=== PATIENT | female | born 1970 | race African-American/Black ===

== ENCOUNTER 2018-06-13 02:49 | Emergency (ER) | payer BC, OTHER ==
--- NOTE | 2018-06-13 05:18 | ER Document Report ---
ED General - General Mode of Arrival: Ambulatory Information source: Patient TRAVEL OUTSIDE OF THE [place] IN LAST 30 DAYS: No <OPAL GONZALEZ - Last Filed: 06/13/18 05:26> <AYDE BROWER - Last Filed: 06/13/18 06:40> - General Chief Complaint: Chest Pain > 30 Stated Complaint: CHEST AND BACK PAIN,SHORTNESS OF BREATH Time Seen by Provider: 06/13/18 04:59 Notes: Patient is an 47 year old female with HTN presents to the emergency department complaining of multiple symptoms including chest pain, shortness of breath and back pain. Patient states her chest pain is located over her sternum and radiates into her left ribs and left side of her back. She states the pain feels like it is deep inside. She also states she has had similar symptom in the past although it was not as severe. She also complains of a cough. She denies any relieving or exacerbating factors to any of her symptoms. She further denies any fevers. Patient is on chronic pain management for coccydynia following a coccyx fracture. (OPAL GONZALEZ) - Related Data Allergies/Adverse Reactions: aspirin [Aspirin] Allergy (Verified 04/04/13 21:49) hydromorphone HCl [From Dilaudid] Allergy (Verified 04/04/13 21:49) levofloxacin [From Levaquin] Allergy (Verified 04/04/13 21:49) metaproterenol sulfate [From Alupent] Allergy (Verified 04/04/13 21:49) prednisone Allergy (Verified 06/13/18 03:18) IV dye Allergy (Uncoded 06/13/18 03:18) Past Medical History - General Information source: Patient - Social History Smoking Status: Current Every Day Smoker Cigarette use (# per day): Yes Chew tobacco use (# tins/day): No Smoking Education Provided: No Family History: Reviewed & Not Pertinent Pulmonary Medical History: Reports: Hx Asthma - childhood Renal/ Medical History: Reports: Hx Kidney Stones - Immunizations Immunizations up to date: Yes Hx Diphtheria, Pertussis, Tetanus Vaccination: Yes <OPAL GONZALEZ - Last Filed: 06/13/18 05:26> Review of Systems - Review of Systems Constitutional: No symptoms reported EENT: No symptoms reported Cardiovascular: See HPI, Chest pain Respiratory: See HPI, Cough, Short of breath Gastrointestinal: No symptoms reported Genitourinary: No symptoms reported Female Genitourinary: No symptoms reported Musculoskeletal: See HPI, Back pain Skin: No symptoms reported Hematologic/Lymphatic: No symptoms reported Neurological/Psychological: No symptoms reported -: Yes All other systems reviewed and negative <OPAL GONZALEZ - Last Filed: 06/13/18 05:26> Physical Exam <OPAL GONZALEZ - Last Filed: 06/13/18 05:26> - Vital signs Vitals: Temp Pulse Resp BP Pulse Ox 98.2 F 95 16 131/72 H 100 06/13/18 03:13 06/13/18 03:13 06/13/18 03:13 06/13/18 03:13 06/13/18 03:13 - Notes Notes: GENERAL: Alert, interacts well. No acute distress. HEAD: Normocephalic, atraumatic. EYES: Pupils equal, round, and reactive to light. Extraocular movements intact. ENT: Oral mucosa moist, tongue midline. NECK: Full range of motion. Supple. Trachea midline. LUNGS: Clear to auscultation bilaterally, no wheezes, rales, or rhonchi. No respiratory distress. Left sternal border tender to palpation. HEART: 2/6 systolic murmur. ABDOMEN: Soft, non-tender. Non-distended. Bowel sounds present in all 4 quadrants. EXTREMITIES: Moves all 4 extremities spontaneously. NEUROLOGICAL: Alert and oriented x3. Normal speech. PSYCH: Normal affect, normal mood. SKIN: Warm, dry, normal turgor. No rashes or lesions noted. BACK: No tenderness to palpation. No CVA tenderness to percussion. (OPAL GONZALEZ) Course - Laboratory Result Diagrams: 06/13/18 05:15 06/13/18 05:15 <OPAL GONZALEZ - Last Filed: 06/13/18 05:26> - Laboratory Result Diagrams: 06/13/18 05:15 06/13/18 05:15 - Diagnostic Test Radiology reviewed: Image reviewed, Reports reviewed - Chest x-ray is unremarkable. - EKG Interpretation by Id EKG shows normal: Sinus rhythm, Randall, Intervals, ST-T Waves. abnormal: QRS Complexes - Inferior Q waves Rate: Normal - 81 Rhythm: NSR Voltage: Consistant with LVH P Waves: LAE When compared to previous EKG there are: Previous EKG unavailable <AYDE BROWER - Last Filed: 06/13/18 06:40> - Vital Signs Vital signs: Temp Pulse Resp BP Pulse Ox 98.2 F 95 18 118/73 100 06/13/18 03:13 06/13/18 03:13 06/13/18 05:01 06/13/18 05:00 06/13/18 05:01 - Laboratory Laboratory results interpreted by me: 06/13/18 06/13/18 05:15 05:30 Chloride 109 H Total Protein 6.1 L Urine Protein 100 H Urine Ketones TRACE H Urine Blood SMALL H Discharge <OPAL GONZALEZ - Last Filed: 06/13/18 05:26> <AYDE BROWER - Last Filed: 06/13/18 06:40> - Discharge Clinical Impression: Chest wall pain Condition: Stable Disposition: HOME, SELF-CARE Additional Instructions: Chest Wall Pain: Your chest pain has been diagnosed as coming from the chest wall. This is often caused by straining the muscles or joints in the chest during physical activity, direct trauma, coughing, or vigorous vomiting. Persons with arthritis are especially prone to this type of pain, due to inflammation of the cartilage joints near the breast bone. Occasionally, no cause can be found. Rest from strenuous physical activity. This kind of chest pain is usually made worse by movement of the chest. Depending on the symptoms, we may prescribe medicine for pain, muscle relaxation, and antiinflammatory effects. If the pain is new, and seems to be due to muscle strain, cold packs can help. Otherwise, apply gentle warmth to the painful area for 15 minutes every hour or two. You should contact the doctor immediately if things change. Further eval uation is needed if you develop a fever or cough, if the nature of the pain changes, or if you become short of breath. Your examination shows tenderness to the left anterior chest wall and ribs. There is no clear explanation for the pain you are feeling in the left back that seem to wrap around to the front. Occasionally shingles will give pain in that region before the rash developed, however the skin is usually very sensitive with early shingles. Your chest x-ray, EKG, and lab work did not show any problems, and a lab test for blood clots was negative. Continue your regular medications, but consider stopping the phentermine hydrochloride until you can be further evaluated by your primary care provider for this chest pain. Follow-up with your doctor this week for reevaluation. RETURN TO THE EMERGENCY ROOM IF ANY NEW OR WORSENING SYMPTOMS. Scribe Attestation: 06/13/18 06:40 I personally performed the services described in the documentation, reviewed and edited the documentation which was dictated to the scribe in my presence, and it accurately records my words and actions. (AYDE BROWER) Scribe Documentation - Scribe Written by Carmen:: Carmen Rodarte, 06/13/2018 05:22 acting as scribe for :: Macario <OPAL GONZALEZ - Last Filed: 06/13/18 05:26>
[2018-06-13 05:28] LABS: ABSOLUTE BASOPHILS # (AUTO) 0.1 10^3/uL (0.0-0.2); ABSOLUTE EOSINOPHILS # (AUTO) 0.2 10^3/uL (0.0-0.6); ABSOLUTE LYMPHOCYTES (AUTO) 3.7 10^3/uL (0.5-4.7); ABSOLUTE MONOCYTES (AUTO) 0.6 10^3/uL (0.1-1.4); ABSOLUTE NEUT (AUTO) 4.9 10^3/uL (1.7-8.2); BASOPHILS % (AUTO) 0.7 % (0-2); EOSINOPHILS % (AUTO) 2.2 % (0-6); HEMATOCRIT 37.1 % (36.0-47.0); HEMOGLOBIN 12.9 g/dL (12.0-15.5); LYMPHOCYTES % (AUTO) 39.1 % (13-45); MEAN CORPUSCULAR HEMOGLOBIN 32.2 pg (27.0-33.4); MEAN CORPUSCULAR HGB CONC 34.8 g/dL (32.0-36.0); MEAN CORPUSCULAR VOLUME 93 fl (80-97); MONOCYTES % (AUTO) 6.3 % (3-13); PLATELET COUNT 238 10^3/uL (150-450); RED BLOOD COUNT 4.01 10^6/uL (3.72-5.28); RED CELL DISTRIBUTION WIDTH 13.2 % (11.5-14.0); SEGMENTED NEUTROPHILS % (AUTO) 51.7 % (42-78); TOTAL CELLS COUNTED % (AUTO) 100 %; WHITE BLOOD COUNT 9.6 10^3/uL (4.0-10.5)
[2018-06-13 05:38] VITALS: BP 118/73
[2018-06-13 05:45] LABS: ALANINE AMINOTRANSFERASE 32 U/L (9-52); ALKALINE PHOSPHATASE 79 U/L (38-126); ASPARTATE AMINO TRANSFERASE 21 U/L (14-36); BILIRUBIN,DIRECT 0.1 mg/dL (0.0-0.4); BILIRUBIN,TOTAL 0.3 mg/dL (0.2-1.3); BLOOD UREA NITROGEN 11 mg/dL (7-20); CALCIUM 9.6 mg/dL (8.4-10.2); CARBON DIOXIDE 28 mmol/L (22-30); CREATINE KINASE 59 U/L (30-135); GLUCOSE 96 mg/dL (75-110); POTASSIUM 3.8 mmol/L (3.6-5.0); TOTAL PROTEIN 6.1 g/dL (6.3-8.2)
[2018-06-13 05:50] LABS: ANION GAP 5 (5-19); CHLORIDE 109 mmol/L (98-107); SODIUM 142.3 mmol/L (137-145)
[2018-06-13 05:56] LABS: CREATINE KINASE MB 0.27 ng/mL (<4.55)
[2018-06-13 05:59] LABS: TROPONIN I < 0.012 ng/mL
[2018-06-13 05:59] LABS: APPEARANCE,URINE SLIGHTLY-CLOUDY; BILIRUBIN,URINE NEGATIVE (NEGATIVE); COLOR,URINE YELLOW; GLUCOSE, URINE NEGATIVE (NEGATIVE); KETONES,URINE TRACE mg/dL (NEGATIVE); LEUKOCYTE ESTERASE,URINE NEGATIVE (NEGATIVE); NITRITE,URINE NEGATIVE (NEGATIVE); PROTEIN,URINE 100 mg/dL (NEGATIVE); URINE SPECIFIC GRAVITY 1.014; UROBILINOGEN,URINE NEGATIVE mg/dL (<2.0)
--- NOTE | 2018-06-13 06:28 | RADIOLOGY REPORT (SQ) ---
EXAM DESCRIPTION: XR CHEST 2 VIEWS COMPLETED DATE/TME: 06/13/2018 05:11 CLINICAL HISTORY: 47 years Female, Chest pain with shortness of breath COMPARISON: 09/02/2015 NUMBER OF VIEWS/TECHNIQUE: 2, Frontal, Lateral FINDINGS: Adequate lung volume, clear parenchyma, normal cardiac silhouette, and intact bony thorax. Mammary prostheses. IMPRESSION: No acute cardiopulmonary findings.
--- NOTE | 2018-06-13 18:37 | EKG REPORT ---
SEVERITY:- ABNORMAL ECG - SINUS RHYTHM FOUZIA, CONSIDER BIATRIAL ABNORMALITIES PROBABLE LEFT VENTRICULAR HYPERTROPHY CONSIDER INFERIOR INFARCT : Confirmed by: [place] Estrada 13-Jun-2018 18:36:20
== END 2018-06-13 07:06 | disposition home or self-care (01) ==
LOC: ER 02:49
DX: R07.89 Other chest pain (principal); M54.9 Dorsalgia, unspecified; R06.02 Shortness of breath; R07.81 Pleurodynia; R05 Cough; F17.210 Nicotine dependence, cigarettes, uncomplicated; I10 Essential (primary) hypertension
CPT/HCPCS: 36415; 71046; 80053; 81001; 82550; 82553; 84484; 85025; 85379; 93005; 93010; 99284